=== PATIENT | female | born 1985 | race Caucasian/White ===

== ENCOUNTER 2016-11-14 23:12 | Emergency (ER) | payer OTHER ==
[~2016-11-14] VITALS: Ht 175.3 cm; Wt 70.3 kg
[2016-11-14 23:32] VITALS: BP 127/78
[2016-11-14] MEDS ORDERED: Bactrim DS (160mg/800mg) tab ORAL ONE (23:45)
[2016-11-14] MEDS ORDERED: IBUPROFEN600 MG ORAL (23:53)
[2016-11-14] MEDS ORDERED: BACTRIM DS TAB1 EAC1 ORAL (23:53)
--- NOTE | 2016-11-14 23:53 | Emergency Room Report ---
History of Present Illness General Chief Complaint: Pain Source: Patient Present Illness HPI Is a 31-year-old female with no past medical history. She presents with left axilla pain. Onset today. She had shaved there are armpit 2 days ago. Is tender to palpation. Worse with movement. No fever chills but no trauma. No redness. No swelling. No other injury. Allergies: Coded Allergies: No Known Allergies (Unverified , 11/14/16) Patient History Past Medical History: see triage record, old chart reviewed Past Surgical History: none Pertinent Family History: none Social History: Denies: smoking Last Menstrual Period: 3 weeks ago Now: No Immunizations: other Reviewed Nursing Documentation: PMH: Agreed, PSxH: Agreed Nursing Documentation-PMH Past Medical History: No History, Except For Review of Systems Eye: Denies: blurred vision, eye pain ENT: Denies: ear pain, nose congestion, throat swelling Respiratory: Denies: cough, shortness of breath Cardiovascular: Denies: chest pain, palpitations Gastrointestinal: Denies: abdominal pain, diarrhea, nausea, vomiting Musculoskeletal: Denies: back pain, joint pain Skin: Denies: rash Neurological: Denies: headache, numbness Endocrine: Denies: increased thirst, increased urine Hematologic/Lymphatic: Denies: easy bruising All Other Systems: negative except mentioned in HPI Physical Exam Vital Signs Date Time Temp Pulse Resp B/P Pulse Ox O2 Delivery O2 Flow Rate FiO2 11/14/16 23:20 97.9 68 16 127/78 99 vitals normal Sp02 EP Interpretation: reviewed, normal General Appearance: well appearing, no apparent distress, alert Head: normocephalic, atraumatic Eyes: bilateral eye EOMI, bilateral eye PERRL ENT: hearing grossly normal, normal pharynx Neck: full range of motion, supple, no meningismus Respiratory: chest non-tender, lungs clear, normal breath sounds Cardiovascular #1: regular rate, rhythm, no murmur Gastrointestinal: normal bowel sounds, non tender, no mass, no organomegaly, no bruit, non-distended Musculoskeletal: back normal, gait/station normal, normal range of motion, other - Left axilla: Tender to palpation in certain area. No abscess noted. No swelling. No redness. Brachial pulse 2+. No biceps tenderness. Radial pulse 2+. Sensation normal. Neurologic: alert, oriented x3 Psychiatric: mood/affect normal Skin: warm/dry Medical Decision Making Diagnostic Impression: Primary Impression: Left axillary pain ER Course Patient presents with left axilla pain. This may be an early infection. I see no clinical evidence to indicate arterial occlusion or DVT. She has no other risk factor for DVT. She's not on control pill. No family history. No history of cancer. No foreign body. Last Vital Signs Date Time Temp Pulse Resp B/P Pulse Ox O2 Delivery O2 Flow Rate FiO2 11/14/16 23:32 97.9 67 16 127/78 99 Status: improved Disposition: HOME, SELF-CARE Condition: Stable Scripts Ibuprofen* (MOTRIN*) 600 Mg Tablet 600 MG ORAL THREE TIMES A DAY, #30 TAB 0 Refills Prov: JARAD FAITH M.D. 11/14/16 Trimethoprim/Sulfamethoxazole 160/800* (BACTRIM DS TABLET*) 1 Each Tablet 1 TAB ORAL Q12H, #14 TAB 0 Refills Prov: JARAD FAITH M.D. 11/14/16 Patient Instructions: PAIN, Uncertain Cause (Acute) Additional Instructions: Followup with your DrAlejandro in 2-3 days for recheck. Clean with peroxide. Return for increasing pain, swelling, fever or any concern. JARAD FAITH M.D. Nov 14, 2016 23:53
[2016-11-14 23:58] VITALS: BP 127/78
== END 2016-11-15 | disposition home or self-care (01) ==
LOC: EMR 23:37
DX: M79.622 Pain in left upper arm (principal)
CPT/HCPCS: 99284